=== PATIENT | female | born 1990 | race Caucasian/White ===

== ENCOUNTER 2017-04-11 06:45 | Emergency (ER) | payer OTHER ==
[~2017-04-11] VITALS: Ht 165.1 cm; Wt 55.8 kg
[2017-04-11 06:57] VITALS: BP 119/90
--- NOTE | 2017-04-11 07:04 | NUR ---
PT TAKEN TO BED 5
--- NOTE | 2017-04-11 07:07 | NUR ---
PATIENT PRESENTS TO ED WITH C/O FEVER,SORETHROAT , RUNNYNOSE, HEADACHE, SHE TOOK DAYQUIL AT 0400HOUR .DENIES N/V/D; SKIN IS PINK/WARM/DRY; AAOX4 WITH EVEN AND STEADY GAIT; LUNGS CLEAR BL; HR EVEN AND REGULAR; PT DENIES ANY FEVER, CP, SOB, OR COUGH AT THIS TIME; PATIENT STATES PAIN OF 2/10 AT THIS TIME; VSS; PATIENT POSITIONED FOR COMFORT; HOB ELEVATED; BEDRAILS UP X2; BED DOWN.
--- NOTE | 2017-04-11 07:58 | NUR ---
Dr. Torres evaluating patient at bedside.
--- NOTE | 2017-04-11 08:10 | NUR ---
PT RESTING ON BED;PROVIDED BLANKET;MICHELLE BIANCHI DISTRESS NOTED;VSS;WILL CONTINUE TO MONITOR PT.
--- NOTE | 2017-04-11 08:33 | NUR ---
Patient discharged with v/s stable. Written and verbal after care instructions given and explained. Patient alert, oriented and verbalized understanding of instructions. Ambulatory with steady gait. All questions addressed prior to discharge. ID band removed. Patient advised to follow up with PMD. Opportunity to ask questions provided and answered.ADVISED PT TO INCREASE FLUID INTAKE,EAT FOODS RICH IN VIT C. AND TO REST.
[2017-04-11 08:35] VITALS: BP 114/88
== END 2017-04-11 08:33 | disposition home or self-care (01) ==
LOC: MED 06:45
DX: B34.9 Viral infection, unspecified (principal)